=== PATIENT | female | born 1955 | race African-American/Black ===

== ENCOUNTER 2017-12-25 18:28 | Inpatient (IN) | payer MEDICARE, MEDICAID ==
[~2017-12-25] VITALS: Ht 160 cm; Wt 79.0 kg
[~2017-12-25 18:28] MED LIST: QUET300T2 PO; TRIH5TAB2 PO
[2017-12-25 19:20] LABS: BASOPHILS % (AUTO) 0.6 % (0.0-2.0); EOSINOPHILS % (AUTO) 1.1 % (1.0-6.0); HEMATOCRIT 37.5 % (36-46); HEMOGLOBIN 12.7 g/dL (12.0-16.0); LYMPHOCYTES # (AUTO) 1.6 K/uL (1.0-4.8); LYMPHOCYTES % (AUTO) 26.3 % (22.0-44.0); MEAN CORPUSCULAR HGB CONC 33.9 G/dL (31.0-37.0); MEAN CORPUSCULAR VOLUME 92 fL (80-100); MONOCYTES # (AUTO) 0.6 K/uL (0.1-1.0); MONOCYTES % (AUTO) 9.7 % (2.0-9.0); NEUTROPHILS # (AUTO) 3.9 K/uL (1.8-7.7); NEUTROPHILS % (AUTO) 62.3 % (40.0-70.0); PLATELET COUNT (AUTO) 358 K/uL (150-450); RED BLOOD CELL COUNT(AUTO) 4.09 MIL/uL (4.00-5.20); RED CELL DISTRIBUTION WIDTH 14.9 % (11.5-14.5)
[2017-12-25 19:32] LABS: ANION GAP 11 mmol/L (8-16); CALCIUM, TOTAL 10.1 mg/dL (8.8-10.5); CARBON DIOXIDE 26 mmol/L (22-29); CHLORIDE 105 mmol/L (98-107); CREATININE 0.97 mg/dL (0.60-1.30); GLOMERULAR FILTR. RATE CALC > 60 mL/min (>60); GLUCOSE,RANDOM 102 mg/dL (70-110); POTASSIUM 3.1 mmol/L (3.5-5.1); SODIUM SERUM 142 mmol/L (136-145); UREA NITROGEN, BLOOD 15 mg/dL (7-18)
[2017-12-25 19:36] LABS: AMPHET/METH SCREEN,URINE NEGATIVE (NEGATIVE); BARBITURATE SCREEN, URINE NEGATIVE (NEGATIVE); BENZODIAZEPINES SCREEN,URINE NEGATIVE (NEGATIVE); CANNABINOID SCREEN,URINE NEGATIVE (NEGATIVE); COCAINE SCREEN,URINE NEGATIVE (NEGATIVE); METHADONE SCREEN, URINE NEGATIVE (NEGATIVE); OPIATE SCREEN,URINE NEGATIVE (NEGATIVE)
[2017-12-25 19:37] LABS: ALANINE AMINOTRANSFERASE 29 U/L (12-78); ALBUMIN 3.7 g/dL (3.4-5.0); ALKALINE PHOSPHATASE 88 U/L (46-116); ASPARTATE AMINOTRANSFERASE 37 U/L (15-37); BILIRUBIN,TOTAL 0.5 mg/dL (0.1-1.0); TOTAL PROTEIN, SERUM 8.1 g/dL (6.4-8.2)
[2017-12-25 19:55] LABS: PHENCYCLIDINE SCREEN,URINE NEGATIVE (NEGATIVE)
[2017-12-25] MEDS ORDERED: ZOLPIDEM TARTRATE 10 MG TABLET PO PRN (20:15)
[2017-12-25 20:53] LABS: HEMOGLOBIN A1C 5.9 % (4.5-6.2)
[2017-12-25 21:02] LABS: CHOL/HDL RATIO 1.9 (3.9-5.7); CHOLESTEROL 170 mg/dL (131-200); FREE T4 (FREE THYROXINE) 1.08 ng/dL (0.76-1.46); HDL CHOLESTEROL 91 mg/dL (40-60); LDL CHOL (CALC.) 69 mg/dL (0-130); THYROID STIMULATING HORMONE 1.47 uIU/mL (0.36-3.74); TRIGLYCERIDES 49 mg/dL (15-150)
[2017-12-25] MEDS ORDERED: ACETAMINOPHEN 325 MG TABLET PO PRN (22:15)
[2017-12-25] MEDS ORDERED: CloNIDine HCL 0.1 MG TABLET PO PRN (22:15)
[2017-12-25] MEDS ORDERED: POTASSIUM CHLORIDE 20 MEQ ER TABLET PO ONE (22:15)
[2017-12-25] MEDS ORDERED: IBUPROFEN 400 MG TABLET PO PRN (22:15)
[2017-12-25] MEDS: QUEtiapine FUMARATE 100 MG TABLET PO PRN (22:33)
[2017-12-25 22:56] VITALS: BP 151/98
[2017-12-26 02:42] VITALS: BP 133/78
[2017-12-26] MEDS: LORazepam 2 MG TABLET PO PRN (08:22)
[2017-12-26] MEDS: QUEtiapine FUMARATE 100 MG TABLET PO PRN (08:22)
[2017-12-26 10:04] VITALS: BP 136/91
[2017-12-26] MEDS ORDERED: PROMETHAZINE HCL 25 MG TABLET PO PRN (12:15)
[2017-12-26] MEDS ORDERED: MAGNESIUM HYDROXIDE SUSPENSION 30 ML UDCUP PO PRN (12:15)
[2017-12-26] MEDS ORDERED: MAG HYDROX/AL HYDROX/SIMETH ES 30 ML SUSPENSION UDCUP PO PRN (12:15)
[2017-12-26] MEDS ORDERED: ACETAMINOPHEN 325 MG TABLET PO PRN (12:15)
[2017-12-26] MEDS ORDERED: LOPERAMIDE HCL 2 MG CAPSULE PO PRN (12:15)
[2017-12-26] MEDS ORDERED: HydrOXYzine PAMOATE 50 MG CAPSULE PO PRN (12:15)
[2017-12-26] MEDS ORDERED: GuaiFENesin/D-METHORPHAN [SUGAR-FREE] 200-20MG/10 ML SYRUP UDCUP PO PRN (12:15)
[2017-12-26] MEDS ORDERED: TUBERCULIN, PURIFIED PROTEIN DERIVATIVE 5 TU/0.1 ML SYG ID ONE (12:15)
[2017-12-26 17:25] VITALS: BP 123/64
[2017-12-26] MEDS: THIAMINE HCL 100 MG TABLET PO SCH (17:29)
[2017-12-26] MEDS: DIVALPROEX SODIUM 500 MG ER TABLET PO SCH (20:42)
[2017-12-26] MEDS: QUEtiapine FUMARATE 200 MG TABLET PO SCH (20:43)
[2017-12-27 01:15] VITALS: BP 135/90
[2017-12-27] MEDS: LORazepam 2 MG TABLET PO PRN (01:20)
[2017-12-27 06:41] LABS: ANION GAP 7 mmol/L (8-16); CALCIUM, TOTAL 9.1 mg/dL (8.8-10.5); CARBON DIOXIDE 28 mmol/L (22-29); CHLORIDE 105 mmol/L (98-107); CREATINE KINASE, TOTAL ONLY 179 U/L (26-192); CREATININE 0.86 mg/dL (0.60-1.30); GLOMERULAR FILTR. RATE CALC > 60 mL/min (>60); GLUCOSE,RANDOM 91 mg/dL (70-110); POTASSIUM 4.1 mmol/L (3.5-5.1); SODIUM SERUM 140 mmol/L (136-145); UREA NITROGEN, BLOOD 21 mg/dL (7-18); URIC ACID 3.8 mg/dL (2.6-7.2)
[2017-12-27] MEDS: NALTREXONE HCL 50 MG TABLET PO SCH (08:36)
[2017-12-27] MEDS: THIAMINE HCL 100 MG TABLET PO SCH ×2 (08:36→16:25)
[2017-12-27] MEDS: MULTIVITAMINS WITH MINERALS, THERAPEUTIC TABLET PO SCH (08:36)
[2017-12-27] MEDS: FOLIC ACID 1 MG TABLET PO SCH (08:36)
[2017-12-27 13:23] VITALS: BP 144/89
[2017-12-27] MEDS: QUEtiapine FUMARATE 200 MG TABLET PO SCH (20:08)
[2017-12-27] MEDS: DIVALPROEX SODIUM 500 MG ER TABLET PO SCH (20:14)
[2017-12-27 20:40] VITALS: BP 134/94
[2017-12-27 21:42] VITALS: BP 122/62
[2017-12-28 06:10] VITALS: BP 128/83
[2017-12-28] MEDS: THIAMINE HCL 100 MG TABLET PO SCH ×2 (08:24→16:10)
[2017-12-28] MEDS: NALTREXONE HCL 50 MG TABLET PO SCH (08:24)
[2017-12-28] MEDS: FOLIC ACID 1 MG TABLET PO SCH (08:24)
[2017-12-28] MEDS: MULTIVITAMINS WITH MINERALS, THERAPEUTIC TABLET PO SCH (08:24)
[2017-12-28] MEDS: AmLODIPine BESYLATE 2.5 MG TABLET PO SCH (08:24)
[2017-12-28 08:25] VITALS: BP 156/97
[2017-12-28 16:05] VITALS: BP 143/90
[2017-12-28] MEDS ORDERED: QUET200T29 PO (16:17)
[2017-12-28] MEDS ORDERED: NALT50TA PO (16:17)
[2017-12-28] MEDS ORDERED: DIVA500T52 PO (16:17)
[2017-12-28] MEDS: DIVALPROEX SODIUM 500 MG ER TABLET PO SCH (19:56)
[2017-12-28] MEDS: QUEtiapine FUMARATE 200 MG TABLET PO SCH (19:56)
[2017-12-29 04:11] VITALS: BP 136/89
[2017-12-29] MEDS: AmLODIPine BESYLATE 2.5 MG TABLET PO SCH (08:21)
[2017-12-29] MEDS: FOLIC ACID 1 MG TABLET PO SCH (08:21)
[2017-12-29] MEDS: NALTREXONE HCL 50 MG TABLET PO SCH (08:21)
[2017-12-29] MEDS: THIAMINE HCL 100 MG TABLET PO SCH ×2 (08:21→17:47)
[2017-12-29] MEDS: MULTIVITAMINS WITH MINERALS, THERAPEUTIC TABLET PO SCH (08:22)
[2017-12-29 09:39] VITALS: BP 159/96
[2017-12-29 11:22] VITALS: BP 147/96
[2017-12-29] MEDS: LORazepam 2 MG TABLET PO PRN (16:27)
[2017-12-29] MEDS: QUEtiapine FUMARATE 100 MG TABLET PO PRN (16:27)
[2017-12-29] MEDS: DIVALPROEX SODIUM 500 MG ER TABLET PO SCH (20:34)
[2017-12-29] MEDS: QUEtiapine FUMARATE 200 MG TABLET PO SCH (20:35)
[2017-12-29] MEDS ORDERED: QUEtiapine FUMARATE 300 MG TABLET PO SCH (21:00)
[2017-12-29 21:20] VITALS: BP 141/92
[2017-12-30 03:37] VITALS: BP 156/90
[2017-12-30] MEDS: NALTREXONE HCL 50 MG TABLET PO SCH (08:40)
[2017-12-30] MEDS: FOLIC ACID 1 MG TABLET PO SCH (08:40)
[2017-12-30] MEDS: MULTIVITAMINS WITH MINERALS, THERAPEUTIC TABLET PO SCH (08:41)
[2017-12-30] MEDS: AmLODIPine BESYLATE 2.5 MG TABLET PO SCH (08:41)
[2017-12-30] MEDS: THIAMINE HCL 100 MG TABLET PO SCH ×2 (08:41→16:51)
[2017-12-30 09:17] VITALS: BP 150/95
[2017-12-30 16:36] VITALS: BP 135/80
[2017-12-30] MEDS: DIVALPROEX SODIUM 500 MG ER TABLET PO SCH (20:11)
[2017-12-30] MEDS ORDERED: QUEtiapine FUMARATE 200 MG TABLET PO SCH (21:00)
[2017-12-31 01:43] VITALS: BP 146/89
[2017-12-31 08:05] VITALS: BP 142/96
[2017-12-31] MEDS: FOLIC ACID 1 MG TABLET PO SCH (08:22)
[2017-12-31] MEDS: THIAMINE HCL 100 MG TABLET PO SCH (08:22)
[2017-12-31] MEDS: NALTREXONE HCL 50 MG TABLET PO SCH (08:22)
[2017-12-31] MEDS: MULTIVITAMINS WITH MINERALS, THERAPEUTIC TABLET PO SCH (08:24)
[2017-12-31] MEDS ORDERED: AmLODIPine BESYLATE 5 MG TABLET PO SCH (09:00)
[2017-12-31] MEDS: LORazepam 2 MG TABLET PO PRN (09:40)
[2017-12-31] MEDS ORDERED: AMLO-511 PO (12:10)
[2017-12-31] MEDS ORDERED: FOLI1 PO (12:10)
[2017-12-31] MEDS ORDERED: THIA100T67 PO (12:11)
[2017-12-31] MEDS ORDERED: MULT-1239 PO (12:11)
[2018-01-01] MEDS ORDERED: AmLODIPine BESYLATE 10 MG TABLET PO SCH (09:00)
== END 2017-12-31 14:30 | disposition home or self-care (01) | DRG 885 ==
LOC: EMS 18:30 → 3EX 20:42
PROVIDERS: ADMIT Psychiatry & Neurology Psychiatry; ATTEND Psychiatry & Neurology Psychiatry
DX: F25.0 Schizoaffective disorder, bipolar type (principal); E87.1 Hypo-osmolality and hyponatremia; F17.200 Nicotine dependence, unspecified, uncomplicated; F15.10 Other stimulant abuse, uncomplicated; E87.6 Hypokalemia; E78.5 Hyperlipidemia, unspecified; G47.00 Insomnia, unspecified; F19.10 Other psychoactive substance abuse, uncomplicated; M25.569 Pain in unspecified knee; D64.9 Anemia, unspecified; I10 Essential (primary) hypertension; Z91.19 Patient's noncompliance with other medical treatment and regimen; Z98.891 History of uterine scar from previous surgery; Z98.51 Tubal ligation status; Z88.8 Allergy status to other drugs, medicaments and biological substances; Z91.018 Allergy to other foods; Z71.6 Tobacco abuse counseling; Z71.51 Drug abuse counseling and surveillance of drug abuser
CPT/HCPCS: 80074; 83036; 83735; 84439; 84443; 84550; 93005; 99285; G0480

== ENCOUNTER → 2018-02-08 | Outpatient (CLI) | payer MEDICARE, OTHER ==
[~2018-02-08] MED LIST changes: +AMLO-511 PO; +DIVA500T52 PO; +FOLI1 PO; +MULT-1239 PO; +NALT50TA PO; +QUET200T29 PO; -QUET300T2 PO; +THIA100T67 PO; -TRIH5TAB2 PO
== END | disposition home or self-care (01) ==
LOC: LABMN 09:30
PROVIDERS: ATTEND Internal Medicine
DX: F25.0 Schizoaffective disorder, bipolar type (principal); I10 Essential (primary) hypertension; M19.90 Unspecified osteoarthritis, unspecified site
CPT/HCPCS: 80074; 86706; 86708

== ENCOUNTER 2018-06-26 18:25 | Emergency (ER) | payer MEDICARE, MEDICAID ==
[~2018-06-26] VITALS: Ht 160 cm; Wt 70.0 kg
[2018-06-26] MEDS ORDERED: TRIH5TAB2 PO (18:28)
[2018-06-26] MEDS ORDERED: SIMV-259 PO (18:28)
[2018-06-26] MEDS ORDERED: FLUORESCEIN SODIUM 1 MG STRIP OS ONE (21:30)
[2018-06-26] MEDS ORDERED: PROPARACAINE HCL 0.5% 15 ML OPHTHALMIC SOLUTION OS ONE (21:30)
[2018-06-27 00:23] VITALS: BP 129/71
== END 2018-06-27 00:33 | disposition short-term general hospital (02) ==
LOC: EMS 18:28
DX: H54.7 Unspecified visual loss (principal); I10 Essential (primary) hypertension; F31.9 Bipolar disorder, unspecified; F20.9 Schizophrenia, unspecified; F17.210 Nicotine dependence, cigarettes, uncomplicated; F19.90 Other psychoactive substance use, unspecified, uncomplicated; Z88.8 Allergy status to other drugs, medicaments and biological substances; Z91.018 Allergy to other foods
CPT/HCPCS: 99173

== ENCOUNTER 2018-12-12 11:53 | Emergency (ER) | payer BC, OTHER ==
[~2018-12-12] VITALS: Ht 157.5 cm; Wt 79.5 kg
[~2018-12-12 11:53] MED LIST changes: -AMLO-511 PO; +AMLO5TAB9 PO; -DIVA500T52 PO; -FOLI1 PO; -MULT-1239 PO; -NALT50TA PO; +SIMV-259 PO; -THIA100T67 PO; +TRIH5TAB2 PO
[2018-12-12 11:57] VITALS: BP 153/113
[2018-12-12] MEDS ORDERED: QUET300T2 PO (12:05)
[2018-12-12 13:10] LABS: AMPHET/METH SCREEN,URINE NEGATIVE (NEGATIVE); BARBITURATE SCREEN, URINE NEGATIVE (NEGATIVE); BENZODIAZEPINES SCREEN,URINE NEGATIVE (NEGATIVE); CANNABINOID SCREEN,URINE NEGATIVE (NEGATIVE); COCAINE SCREEN,URINE NEGATIVE (NEGATIVE); METHADONE SCREEN, URINE NEGATIVE (NEGATIVE); OPIATE SCREEN,URINE NEGATIVE (NEGATIVE); PHENCYCLIDINE SCREEN,URINE NEGATIVE (NEGATIVE)
[2018-12-12 13:26] LABS: BASOPHILS % (AUTO) 0.8 % (0.0-2.0); EOSINOPHILS % (AUTO) 2.8 % (1.0-6.0); HEMOGLOBIN 11.8 g/dL (12.0-16.0); LYMPHOCYTES # (AUTO) 1.6 K/uL (1.0-4.8); LYMPHOCYTES % (AUTO) 34.5 % (22.0-44.0); MEAN CORPUSCULAR HEMOGLOBIN 32.3 pg (26.0-34.0); MEAN CORPUSCULAR HGB CONC 33.7 G/dL (31.0-37.0); MEAN CORPUSCULAR VOLUME 96 fL (80-100); MONOCYTES # (AUTO) 0.6 K/uL (0.1-1.0); NEUTROPHILS # (AUTO) 2.3 K/uL (1.8-7.7); NEUTROPHILS % (AUTO) 49.9 % (40.0-70.0); PLATELET COUNT (AUTO) 300 K/uL (150-450); RED BLOOD CELL COUNT(AUTO) 3.64 MIL/uL (4.00-5.20); RED CELL DISTRIBUTION WIDTH 14.3 % (11.5-14.5)
[2018-12-12 13:43] LABS: ALANINE AMINOTRANSFERASE 46 U/L (12-78); ALBUMIN 3.6 g/dL (3.4-5.0); ALKALINE PHOSPHATASE 75 U/L (46-116); ANION GAP 11 mmol/L (8-16); ASPARTATE AMINOTRANSFERASE 42 U/L (15-37); BILIRUBIN,TOTAL 0.6 mg/dL (0.1-1.0); CALCIUM, TOTAL 9.8 mg/dL (8.8-10.5); CARBON DIOXIDE 23 mmol/L (22-29); CHLORIDE 104 mmol/L (98-107); CREATININE 0.97 mg/dL (0.60-1.30); GLOMERULAR FILTR. RATE CALC > 60 mL/min (>60); GLUCOSE,RANDOM 94 mg/dL (70-110); SODIUM SERUM 138 mmol/L (136-145); TOTAL PROTEIN, SERUM 7.4 g/dL (6.4-8.2); UREA NITROGEN, BLOOD 17 mg/dL (7-18)
[2018-12-12 13:44] LABS: POTASSIUM 2.9 mmol/L (3.5-5.1)
[2018-12-12] MEDS ORDERED: POTASSIUM CHLORIDE 20 MEQ ER TABLET PO ONE (14:00)
== END 2018-12-12 14:25 | disposition home or self-care (01) ==
LOC: EMS 11:55
DX: F31.9 Bipolar disorder, unspecified (principal); F25.9 Schizoaffective disorder, unspecified; E87.6 Hypokalemia; F17.210 Nicotine dependence, cigarettes, uncomplicated; I10 Essential (primary) hypertension; Z98.51 Tubal ligation status; Z88.8 Allergy status to other drugs, medicaments and biological substances; Z91.018 Allergy to other foods
CPT/HCPCS: 36415; 80053; 80307; 85025; 99284; 99406; G0480

== ENCOUNTER 2018-12-16 14:31 | Inpatient (IN) | payer BC, MEDICAID ==
[~2018-12-16] VITALS: Ht 157.5 cm; Wt 78.0 kg
[~2018-12-16 14:31] MED LIST changes: -AMLO5TAB9 PO; -QUET200T29 PO; +QUET300T2 PO; -SIMV-259 PO
[2018-12-16] MEDS ORDERED: THIA100T67 PO (14:56)
[2018-12-16] MEDS ORDERED: SIMV-259 PO (14:56)
[2018-12-16] MEDS ORDERED: TRIH5TAB2 PO (14:56)
[2018-12-16] MEDS ORDERED: CYCL10 PO (14:56)
[2018-12-16] MEDS ORDERED: IBUP100O27 PO (14:56)
[2018-12-16] MEDS ORDERED: AMLO10TA7 PO (14:56)
[2018-12-16] MEDS ORDERED: QUET300T2 PO (14:56)
[2018-12-16] MEDS ORDERED: CHOL20004 PO (14:56)
[2018-12-16 15:21] VITALS: BP 142/87
[2018-12-16] MEDS ORDERED: QUEtiapine FUMARATE 100 MG TABLET PO PRN (15:45)
[2018-12-16] MEDS ORDERED: LORazepam 2 MG TABLET PO PRN (15:45)
[2018-12-16] MEDS ORDERED: ZOLPIDEM TARTRATE 10 MG TABLET PO PRN (15:45)
[2018-12-16] MEDS ORDERED: IBUP-2070 PO (15:51)
[2018-12-16 16:01] VITALS: BP 139/70
[2018-12-16 17:01] VITALS: BP 139/70
[2018-12-16] MEDS: QUEtiapine FUMARATE 300 MG TABLET PO SCH (20:31)
[2018-12-16] MEDS: TRIHEXYPHENIDYL HCL 5 MG TABLET PO SCH (20:31)
[2018-12-17] VITALS (10 sets, daily range): BP systolic 105–150; BP diastolic 66–98
[2018-12-17 08:22] LABS: BASOPHILS % (AUTO) 0.6 % (0.0-2.0); EOSINOPHILS % (AUTO) 2.1 % (1.0-6.0); HEMOGLOBIN 12.2 g/dL (12.0-16.0); LYMPHOCYTES # (AUTO) 1.6 K/uL (1.0-4.8); LYMPHOCYTES % (AUTO) 25.3 % (22.0-44.0); MEAN CORPUSCULAR HEMOGLOBIN 32.4 pg (26.0-34.0); MEAN CORPUSCULAR HGB CONC 33.9 G/dL (31.0-37.0); MEAN CORPUSCULAR VOLUME 96 fL (80-100); MONOCYTES # (AUTO) 0.7 K/uL (0.1-1.0); MONOCYTES % (AUTO) 10.4 % (2.0-9.0); NEUTROPHILS % (AUTO) 61.6 % (40.0-70.0); PLATELET COUNT (AUTO) 272 K/uL (150-450); RED BLOOD CELL COUNT(AUTO) 3.76 MIL/uL (4.00-5.20); RED CELL DISTRIBUTION WIDTH 14.2 % (11.5-14.5)
[2018-12-17 08:32] LABS: APPEARANCE,URINE CLOUDY (CLEAR); GLUCOSE, URINE (UA) NEGATIVE (NEGATIVE); KETONES,URINE TRACE mg/dL (NEGATIVE); LEUKOCYTE ESTERASE ,URINE TRACE (NEGATIVE); NITRATE,URINE NEGATIVE (NEGATIVE); OCCULT BLOOD,URINE NEGATIVE (NEGATIVE); PH,URINE 5.5 (5.0-8.0); PROTEIN,URINE TRACE (NEGATIVE); UROBILINOGEN,URINE 0.2 mg/dL (<=1.0)
[2018-12-17 08:32] LABS: HEMOGLOBIN A1C 5.7 % (4.5-6.2)
[2018-12-17 08:45] LABS: AMPHET/METH SCREEN,URINE NEGATIVE (NEGATIVE); BARBITURATE SCREEN, URINE NEGATIVE (NEGATIVE); BENZODIAZEPINES SCREEN,URINE NEGATIVE (NEGATIVE); CANNABINOID SCREEN,URINE NEGATIVE (NEGATIVE); COCAINE SCREEN,URINE NEGATIVE (NEGATIVE); METHADONE SCREEN, URINE NEGATIVE (NEGATIVE); OPIATE SCREEN,URINE NEGATIVE (NEGATIVE); PHENCYCLIDINE SCREEN,URINE NEGATIVE (NEGATIVE)
[2018-12-17 08:47] LABS: BILIRUBIN,URINE PRELIM. POSITIVE (NEGATIVE); RBC,URINE 0-2 /HPF (0-2); WBC,URINE 0-2 /HPF (0-5)
[2018-12-17 08:48] LABS: AMORPHOUS SEDIMENT,UR Moderate /LPF (None Seen); BACTERIA,URINE Few /HPF (None Seen); CALCIUM OXALATE CRYSTALS,UR Few /LPF (None Seen); SQUAMOUS EPITHELIAL CELL,UR Many /LPF (None Seen)
[2018-12-17 08:59] LABS: ALANINE AMINOTRANSFERASE 40 U/L (12-78); ALBUMIN 3.3 g/dL (3.4-5.0); ALKALINE PHOSPHATASE 66 U/L (46-116); ANION GAP 9 mmol/L (8-16); ASPARTATE AMINOTRANSFERASE 42 U/L (15-37); BILIRUBIN,TOTAL 0.5 mg/dL (0.1-1.0); CALCIUM, TOTAL 9.6 mg/dL (8.8-10.5); CARBON DIOXIDE 26 mmol/L (22-29); CHLORIDE 101 mmol/L (98-107); CHOLESTEROL 161 mg/dL (131-200); CREATININE 0.94 mg/dL (0.60-1.30); FREE T4 (FREE THYROXINE) 1.12 ng/dL (0.76-1.46); GLOMERULAR FILTR. RATE CALC > 60 mL/min (>60); GLUCOSE,RANDOM 93 mg/dL (70-110); HDL CHOLESTEROL 81 mg/dL (40-60); LDL CHOL (CALC.) 72 mg/dL (0-130); POTASSIUM 3.6 mmol/L (3.5-5.1); SODIUM SERUM 136 mmol/L (136-145); THYROID STIMULATING HORMONE 1.38 uIU/mL (0.36-3.74); TOTAL PROTEIN, SERUM 6.7 g/dL (6.4-8.2); TRIGLYCERIDES 39 mg/dL (15-150); UREA NITROGEN, BLOOD 30 mg/dL (7-18)
[2018-12-17] MEDS ORDERED: ACETAMINOPHEN 325 MG TABLET PO PRN (11:30)
[2018-12-17] MEDS: CYCLOBENZAPRINE HCL 10 MG TABLET PO PRN (12:31)
[2018-12-17] MEDS: TRIHEXYPHENIDYL HCL 5 MG TABLET PO SCH (20:27)
[2018-12-17] MEDS: QUEtiapine FUMARATE 300 MG TABLET PO SCH (20:27)
[2018-12-18 00:11] VITALS: BP 132/78
[2018-12-18] MEDS: IBUPROFEN 600 MG TABLET PO PRN (00:55)
[2018-12-18 08:27] VITALS: BP 130/78
[2018-12-18] MEDS: CYCLOBENZAPRINE HCL 10 MG TABLET PO PRN (09:17)
[2018-12-18] MEDS: CHOLECALCIFEROL (VIT D3) 1,000 UNITS TABLET PO SCH (12:28)
[2018-12-18] MEDS: THIAMINE HCL 100 MG TABLET PO SCH (16:27)
[2018-12-18 17:57] VITALS: BP 132/77
[2018-12-18] MEDS: QUEtiapine FUMARATE 300 MG TABLET PO SCH (20:27)
[2018-12-18] MEDS: TRIHEXYPHENIDYL HCL 5 MG TABLET PO SCH (20:27)
[2018-12-19 03:39] VITALS: BP 114/76
[2018-12-19] MEDS: THIAMINE HCL 100 MG TABLET PO SCH ×2 (09:27→16:28)
[2018-12-19] MEDS: CHOLECALCIFEROL (VIT D3) 1,000 UNITS TABLET PO SCH (09:27)
[2018-12-19] MEDS: AmLODIPine BESYLATE 10 MG TABLET PO SCH (09:27)
[2018-12-19 09:33] VITALS: BP 125/78
[2018-12-19 13:27] VITALS: BP 125/78
[2018-12-19] MEDS: CYCLOBENZAPRINE HCL 10 MG TABLET PO PRN (13:29)
[2018-12-19 16:01] VITALS: BP 136/80
[2018-12-19] MEDS: QUEtiapine FUMARATE 300 MG TABLET PO SCH (20:30)
[2018-12-19] MEDS: TRIHEXYPHENIDYL HCL 5 MG TABLET PO SCH (20:30)
[2018-12-20 03:45] VITALS: BP 123/79
[2018-12-20] MEDS: IBUPROFEN 600 MG TABLET PO PRN (03:48)
[2018-12-20 08:04] VITALS: BP 138/75
[2018-12-20] MEDS: AmLODIPine BESYLATE 10 MG TABLET PO SCH (08:24)
[2018-12-20] MEDS: CHOLECALCIFEROL (VIT D3) 1,000 UNITS TABLET PO SCH (08:24)
[2018-12-20] MEDS: THIAMINE HCL 100 MG TABLET PO SCH ×2 (08:24→16:34)
[2018-12-20] MEDS: NITROFURANTOIN/NITROFURAN MAC 100 MG CAPSULE [MACROBID] PO SCH ×2 (09:30→16:34)
[2018-12-20] MEDS: CYCLOBENZAPRINE HCL 10 MG TABLET PO PRN (10:30)
[2018-12-20 16:04] VITALS: BP 139/76
[2018-12-20] MEDS: QUEtiapine FUMARATE 300 MG TABLET PO SCH (20:29)
[2018-12-20] MEDS: TRIHEXYPHENIDYL HCL 5 MG TABLET PO SCH (21:07)
[2018-12-21 02:31] VITALS: BP 136/84
[2018-12-21] MEDS: IBUPROFEN 600 MG TABLET PO PRN (02:35)
[2018-12-21 08:23] VITALS: BP_SYST 122; BP_SYST 124; BP_DIAS 79; BP_DIAS 90
[2018-12-21] MEDS: AmLODIPine BESYLATE 10 MG TABLET PO SCH (08:32)
[2018-12-21] MEDS: THIAMINE HCL 100 MG TABLET PO SCH ×2 (08:32→16:27)
[2018-12-21] MEDS: CHOLECALCIFEROL (VIT D3) 1,000 UNITS TABLET PO SCH (08:32)
[2018-12-21] MEDS: NITROFURANTOIN/NITROFURAN MAC 100 MG CAPSULE [MACROBID] PO SCH ×2 (08:32→16:27)
[2018-12-21 16:19] VITALS: BP 120/78
[2018-12-21] MEDS: TRIHEXYPHENIDYL HCL 5 MG TABLET PO SCH (21:21)
[2018-12-21] MEDS: QUEtiapine FUMARATE 300 MG TABLET PO SCH (21:21)
[2018-12-22 04:50] VITALS: BP 130/83
[2018-12-22 08:12] VITALS: BP 134/81
[2018-12-22] MEDS: AmLODIPine BESYLATE 10 MG TABLET PO SCH (08:31)
[2018-12-22] MEDS: CHOLECALCIFEROL (VIT D3) 1,000 UNITS TABLET PO SCH (08:31)
[2018-12-22] MEDS: NITROFURANTOIN/NITROFURAN MAC 100 MG CAPSULE [MACROBID] PO SCH ×2 (08:31→16:31)
[2018-12-22] MEDS: THIAMINE HCL 100 MG TABLET PO SCH ×2 (08:31→16:31)
[2018-12-22] MEDS ORDERED: MACR100 PO (10:35)
[2018-12-22 16:01] VITALS: BP 125/72
[2018-12-22] MEDS: QUEtiapine FUMARATE 300 MG TABLET PO SCH (20:28)
[2018-12-22] MEDS: TRIHEXYPHENIDYL HCL 5 MG TABLET PO SCH (20:28)
[2018-12-23 02:41] VITALS: BP 140/80
[2018-12-23] MEDS ORDERED: THIA100T67 PO (08:04)
[2018-12-23 08:10] VITALS: BP 140/93
[2018-12-23] MEDS: AmLODIPine BESYLATE 10 MG TABLET PO SCH (08:21)
[2018-12-23] MEDS: CHOLECALCIFEROL (VIT D3) 1,000 UNITS TABLET PO SCH (08:21)
[2018-12-23] MEDS: NITROFURANTOIN/NITROFURAN MAC 100 MG CAPSULE [MACROBID] PO SCH (08:22)
[2018-12-23] MEDS: THIAMINE HCL 100 MG TABLET PO SCH (08:22)
== END 2018-12-23 10:12 | disposition home or self-care (01) | DRG 885 ==
LOC: EDSTATUS 14:40 → B2X 16:32
DX: F25.0 Schizoaffective disorder, bipolar type (principal); E55.9 Vitamin D deficiency, unspecified; E78.5 Hyperlipidemia, unspecified; I10 Essential (primary) hypertension; R45.850 Homicidal ideations; E87.6 Hypokalemia; M54.9 Dorsalgia, unspecified; Z79.899 Other long term (current) drug therapy; Z88.8 Allergy status to other drugs, medicaments and biological substances; Z91.018 Allergy to other foods; Z98.51 Tubal ligation status
CPT/HCPCS: 80307; 83036; 84439; 84443; 87081

== ENCOUNTER 2018-12-27 10:57 | Inpatient (IN) | payer BC, MEDICAID ==
[~2018-12-27] VITALS: Ht 160 cm; Wt 78.5 kg
[~2018-12-27 10:57] MED LIST changes: +AMLO10TA7 PO; +CHOL20004 PO; +MACR100 PO; +THIA100T67 PO
[2018-12-27 11:14] VITALS: BP 183/102
[2018-12-27] MEDS ORDERED: CloNIDine HCL 0.1 MG TABLET PO PRN (12:00)
[2018-12-27] MEDS: MULTIVITAMINS WITH MINERALS, THERAPEUTIC TABLET PO SCH (13:19)
[2018-12-27] MEDS: AmLODIPine BESYLATE 10 MG TABLET PO SCH (13:19)
[2018-12-27] MEDS: TRIHEXYPHENIDYL HCL 5 MG TABLET PO SCH ×2 (13:19→16:18)
[2018-12-27] MEDS ORDERED: INFLUENZA VIRUS VACCINE QVS 2019-20 (3YR+)/PF 60 MCG/0.5 ML SYRINGE IM ONE (13:45)
[2018-12-27] MEDS ORDERED: PNEUMOCOCCAL VACCINE POLYVALENT 0.5 ML VIAL [PPSV23] IM ONE (13:45)
[2018-12-27] MEDS ORDERED: ACETAMINOPHEN 325 MG TABLET PO PRN (13:45)
[2018-12-27] MEDS: HydrOXYzine HCL 25 MG TABLET PO SCH ×3 (14:40→16:31)
[2018-12-27 15:08] VITALS: BP 143/88
[2018-12-27 16:06] VITALS: BP 140/84
[2018-12-27] MEDS: QUEtiapine FUMARATE 300 MG TABLET PO SCH (20:02)
[2018-12-28 04:57] VITALS: BP 138/86
[2018-12-28 07:16] LABS: BASOPHILS % (AUTO) 0.8 % (0.0-2.0); EOSINOPHILS % (AUTO) 3.5 % (1.0-6.0); HEMATOCRIT 36.5 % (36-46); HEMOGLOBIN 12.7 g/dL (12.0-16.0); LYMPHOCYTES # (AUTO) 1.9 K/uL (1.0-4.8); LYMPHOCYTES % (AUTO) 33.5 % (22.0-44.0); MEAN CORPUSCULAR HEMOGLOBIN 32.9 pg (26.0-34.0); MEAN CORPUSCULAR HGB CONC 34.9 G/dL (31.0-37.0); MEAN CORPUSCULAR VOLUME 94 fL (80-100); MONOCYTES # (AUTO) 0.6 K/uL (0.1-1.0); MONOCYTES % (AUTO) 11.1 % (2.0-9.0); NEUTROPHILS # (AUTO) 2.9 K/uL (1.8-7.7); NEUTROPHILS % (AUTO) 51.1 % (40.0-70.0); PLATELET COUNT (AUTO) 352 K/uL (150-450); RED BLOOD CELL COUNT(AUTO) 3.87 MIL/uL (4.00-5.20); RED CELL DISTRIBUTION WIDTH 13.6 % (11.5-14.5)
[2018-12-28 07:26] LABS: ANION GAP 9 mmol/L (8-16); CALCIUM, TOTAL 9.6 mg/dL (8.8-10.5); CARBON DIOXIDE 28 mmol/L (22-29); CHLORIDE 103 mmol/L (98-107); CREATININE 0.99 mg/dL (0.60-1.30); GLOMERULAR FILTR. RATE CALC > 60 mL/min (>60); GLUCOSE,RANDOM 124 mg/dL (70-110); SODIUM SERUM 140 mmol/L (136-145); UREA NITROGEN, BLOOD 15 mg/dL (7-18)
[2018-12-28 08:08] VITALS: BP 122/80
[2018-12-28] MEDS: MULTIVITAMINS WITH MINERALS, THERAPEUTIC TABLET PO SCH (08:19)
[2018-12-28] MEDS: TRIHEXYPHENIDYL HCL 5 MG TABLET PO SCH ×2 (08:19→21:00)
[2018-12-28] MEDS: AmLODIPine BESYLATE 10 MG TABLET PO SCH (08:19)
[2018-12-28] MEDS: HydrOXYzine HCL 25 MG TABLET PO SCH ×2 (08:19→16:10)
[2018-12-28 16:04] VITALS: BP 138/87
[2018-12-28] MEDS ORDERED: QUEtiapine FUMARATE 300 MG TABLET PO SCH (21:00)
[2018-12-28] MEDS: QUEtiapine FUMARATE 300 MG TABLET PO SCH (21:00)
[2018-12-29 06:01] VITALS: BP 119/68
[2018-12-29 08:07] VITALS: BP 140/80
[2018-12-29] MEDS: HydrOXYzine HCL 25 MG TABLET PO SCH ×2 (08:09→17:17)
[2018-12-29] MEDS: MULTIVITAMINS WITH MINERALS, THERAPEUTIC TABLET PO SCH (08:09)
[2018-12-29] MEDS: AmLODIPine BESYLATE 10 MG TABLET PO SCH (08:09)
[2018-12-29 16:06] VITALS: BP 135/81
[2018-12-29] MEDS: TRIHEXYPHENIDYL HCL 5 MG TABLET PO SCH (21:09)
[2018-12-29] MEDS: QUEtiapine FUMARATE 300 MG TABLET PO SCH (21:09)
[2018-12-29] MEDS ORDERED: QUEtiapine FUMARATE 100 MG TABLET PO PRN (22:30)
[2018-12-29] MEDS ORDERED: LORazepam 2 MG TABLET PO PRN (22:30)
[2018-12-29] MEDS ORDERED: ZOLPIDEM TARTRATE 10 MG TABLET PO PRN (22:30)
[2018-12-30 00:49] VITALS: BP 140/92
[2018-12-30 02:45] VITALS: BP 138/86
[2018-12-30] MEDS: LORazepam 2 MG TABLET PO PRN (03:14)
[2018-12-30] MEDS: IBUPROFEN 600 MG TABLET PO PRN ×2 (03:14→22:56)
[2018-12-30 08:19] VITALS: BP 102/61
[2018-12-30] MEDS: HydrOXYzine HCL 25 MG TABLET PO SCH ×2 (08:53→16:06)
[2018-12-30] MEDS: AmLODIPine BESYLATE 10 MG TABLET PO SCH (08:53)
[2018-12-30] MEDS: MULTIVITAMINS WITH MINERALS, THERAPEUTIC TABLET PO SCH (08:53)
[2018-12-30 16:10] VITALS: BP 137/75
[2018-12-30] MEDS: TRIHEXYPHENIDYL HCL 5 MG TABLET PO SCH (20:11)
[2018-12-30] MEDS: QUEtiapine FUMARATE 300 MG TABLET PO SCH (20:11)
[2018-12-30 22:56] VITALS: BP 129/78
[2018-12-31 03:32] VITALS: BP 121/80
[2018-12-31 08:32] VITALS: BP 116/78
[2018-12-31] MEDS: HydrOXYzine HCL 25 MG TABLET PO SCH ×2 (08:32→16:15)
[2018-12-31] MEDS: LORazepam 2 MG TABLET PO PRN (08:32)
[2018-12-31] MEDS: MULTIVITAMINS WITH MINERALS, THERAPEUTIC TABLET PO SCH (08:32)
[2018-12-31] MEDS: AmLODIPine BESYLATE 10 MG TABLET PO SCH (08:32)
[2018-12-31 16:09] VITALS: BP 127/75
[2018-12-31] MEDS: QUEtiapine FUMARATE 300 MG TABLET PO SCH (20:09)
[2018-12-31] MEDS: TRIHEXYPHENIDYL HCL 5 MG TABLET PO SCH (20:09)
[2019-01-01 00:18] VITALS: BP 121/68
[2019-01-01] MEDS: IBUPROFEN 600 MG TABLET PO PRN (00:18)
[2019-01-01] MEDS: AmLODIPine BESYLATE 10 MG TABLET PO SCH (08:15)
[2019-01-01] MEDS: HydrOXYzine HCL 25 MG TABLET PO SCH ×2 (08:15→16:11)
[2019-01-01] MEDS: MULTIVITAMINS WITH MINERALS, THERAPEUTIC TABLET PO SCH (08:15)
[2019-01-01 08:21] VITALS: BP 140/79
[2019-01-01 16:11] VITALS: BP 142/80
[2019-01-01] MEDS: LORazepam 2 MG TABLET PO PRN (18:50)
[2019-01-01] MEDS: TRIHEXYPHENIDYL HCL 5 MG TABLET PO SCH (20:13)
[2019-01-01] MEDS: QUEtiapine FUMARATE 300 MG TABLET PO SCH (20:13)
[2019-01-02 00:13] VITALS: BP 132/79
[2019-01-02 08:13] LABS: BASOPHILS % (AUTO) 0.6 % (0.0-2.0); EOSINOPHILS % (AUTO) 1.2 % (1.0-6.0); HEMATOCRIT 34.7 % (36-46); HEMOGLOBIN 11.7 g/dL (12.0-16.0); LYMPHOCYTES # (AUTO) 1.4 K/uL (1.0-4.8); LYMPHOCYTES % (AUTO) 20.7 % (22.0-44.0); MEAN CORPUSCULAR HEMOGLOBIN 32.4 pg (26.0-34.0); MEAN CORPUSCULAR HGB CONC 33.8 G/dL (31.0-37.0); MEAN CORPUSCULAR VOLUME 96 fL (80-100); MONOCYTES # (AUTO) 0.6 K/uL (0.1-1.0); MONOCYTES % (AUTO) 8.6 % (2.0-9.0); NEUTROPHILS # (AUTO) 4.8 K/uL (1.8-7.7); NEUTROPHILS % (AUTO) 68.9 % (40.0-70.0); PLATELET COUNT (AUTO) 326 K/uL (150-450); RED BLOOD CELL COUNT(AUTO) 3.62 MIL/uL (4.00-5.20); RED CELL DISTRIBUTION WIDTH 13.6 % (11.5-14.5)
[2019-01-02 08:25] VITALS: BP 124/75
[2019-01-02] MEDS: MULTIVITAMINS WITH MINERALS, THERAPEUTIC TABLET PO SCH (08:39)
[2019-01-02] MEDS: HydrOXYzine HCL 25 MG TABLET PO SCH (08:39)
[2019-01-02] MEDS: AmLODIPine BESYLATE 10 MG TABLET PO SCH (08:39)
[2019-01-02 09:18] LABS: ALANINE AMINOTRANSFERASE 35 U/L (12-78); ALBUMIN 3.7 g/dL (3.4-5.0); ALKALINE PHOSPHATASE 66 U/L (46-116); ANION GAP 9 mmol/L (8-16); ASPARTATE AMINOTRANSFERASE 25 U/L (15-37); BILIRUBIN,TOTAL 0.4 mg/dL (0.1-1.0); CALCIUM, TOTAL 10.1 mg/dL (8.8-10.5); CARBON DIOXIDE 29 mmol/L (22-29); CHLORIDE 99 mmol/L (98-107); CREATINE KINASE, TOTAL ONLY 231 U/L (26-192); CREATININE 0.94 mg/dL (0.60-1.30); GLOMERULAR FILTR. RATE CALC > 60 mL/min (>60); GLUCOSE,RANDOM 130 mg/dL (70-110); POTASSIUM 3.8 mmol/L (3.5-5.1); SODIUM SERUM 137 mmol/L (136-145); TOTAL PROTEIN, SERUM 7.3 g/dL (6.4-8.2); UREA NITROGEN, BLOOD 26 mg/dL (7-18)
[2019-01-02] MEDS ORDERED: TRIH5TAB2 PO ×2 (11:17→11:58)
[2019-01-02] MEDS ORDERED: QUET300T18 PO (11:17)
[2019-01-02] MEDS ORDERED: MULT-1239 PO (11:48)
[2019-01-02] MEDS ORDERED: HYD25 PO (11:48)
== END 2019-01-02 13:20 | disposition home or self-care (01) | DRG 885 ==
LOC: B2X 12:09
PROC: 3E0234Z Introduction of Serum, Toxoid and Vaccine into Muscle, Percutaneous Approach (ICD-10-PCS; principal; 2018-12-27)
DX: F25.9 Schizoaffective disorder, unspecified (principal); E78.5 Hyperlipidemia, unspecified; I10 Essential (primary) hypertension; K21.9 Gastro-esophageal reflux disease without esophagitis; Z91.19 Patient's noncompliance with other medical treatment and regimen; Z88.8 Allergy status to other drugs, medicaments and biological substances; Z91.018 Allergy to other foods; Z53.20 Procedure and treatment not carried out because of patient's decision for unspecified reasons; Z23 Encounter for immunization
CPT/HCPCS: 83735; 87081; 90686

== ENCOUNTER 2019-01-06 19:57 | Inpatient (IN) | payer BC, MEDICAID ==
[~2019-01-06] VITALS: Ht 157.5 cm; Wt 80.5 kg
[~2019-01-06 19:57] MED LIST changes: -CHOL20004 PO; +HYD25 PO; -MACR100 PO; +MULT-1239 PO; +QUET300T18 PO; -THIA100T67 PO
[2019-01-06 21:01] LABS: BASOPHILS % (AUTO) 1.2 % (0.0-2.0); EOSINOPHILS % (AUTO) 2.1 % (1.0-6.0); HEMATOCRIT 37.4 % (36-46); HEMOGLOBIN 12.3 g/dL (12.0-16.0); LYMPHOCYTES # (AUTO) 2.2 K/uL (1.0-4.8); LYMPHOCYTES % (AUTO) 28.3 % (22.0-44.0); MEAN CORPUSCULAR HEMOGLOBIN 31.9 pg (26.0-34.0); MEAN CORPUSCULAR VOLUME 97 fL (80-100); MONOCYTES # (AUTO) 0.9 K/uL (0.1-1.0); MONOCYTES % (AUTO) 12.2 % (2.0-9.0); NEUTROPHILS # (AUTO) 4.4 K/uL (1.8-7.7); NEUTROPHILS % (AUTO) 56.2 % (40.0-70.0); PLATELET COUNT (AUTO) 349 K/uL (150-450); RED BLOOD CELL COUNT(AUTO) 3.87 MIL/uL (4.00-5.20)
[2019-01-06 21:49] LABS: ALANINE AMINOTRANSFERASE 40 U/L (12-78); ALBUMIN 3.8 g/dL (3.4-5.0); ALKALINE PHOSPHATASE 73 U/L (46-116); ANION GAP 13 mmol/L (8-16); ASPARTATE AMINOTRANSFERASE 38 U/L (15-37); BILIRUBIN,TOTAL 0.9 mg/dL (0.1-1.0); CALCIUM, TOTAL 9.7 mg/dL (8.8-10.5); CARBON DIOXIDE 23 mmol/L (22-29); CHLORIDE 105 mmol/L (98-107); CREATINE KINASE, TOTAL ONLY 438 U/L (26-192); CREATININE 0.96 mg/dL (0.60-1.30); GLOMERULAR FILTR. RATE CALC > 60 mL/min (>60); GLUCOSE,RANDOM 99 mg/dL (70-110); SODIUM SERUM 141 mmol/L (136-145); UREA NITROGEN, BLOOD 23 mg/dL (7-18)
[2019-01-06 21:53] LABS: AMPHET/METH SCREEN,URINE NEGATIVE (NEGATIVE); BARBITURATE SCREEN, URINE NEGATIVE (NEGATIVE); BENZODIAZEPINES SCREEN,URINE NEGATIVE (NEGATIVE); CANNABINOID SCREEN,URINE NEGATIVE (NEGATIVE); COCAINE SCREEN,URINE NEGATIVE (NEGATIVE); METHADONE SCREEN, URINE NEGATIVE (NEGATIVE); OPIATE SCREEN,URINE NEGATIVE (NEGATIVE)
[2019-01-06 21:54] LABS: PHENCYCLIDINE SCREEN,URINE NEGATIVE (NEGATIVE)
[2019-01-06] MEDS ORDERED: POTASSIUM CHLORIDE 20 MEQ ER TABLET PO ONE (22:15)
[2019-01-07] MEDS ORDERED: ZOLPIDEM TARTRATE 10 MG TABLET PO PRN (02:30)
[2019-01-07] MEDS: QUEtiapine FUMARATE 100 MG TABLET PO PRN ×3 (03:58→19:24)
[2019-01-07 04:24] VITALS: BP 145/90
[2019-01-07] MEDS ORDERED: MAG HYDROX/AL HYDROX/SIMETH ES 30 ML SUSPENSION UDCUP PO PRN (09:30)
[2019-01-07] MEDS ORDERED: ACETAMINOPHEN 325 MG TABLET PO PRN (09:30)
[2019-01-07] MEDS ORDERED: DOCUSATE SODIUM 100 MG CAPSULE PO PRN (09:30)
[2019-01-07] MEDS ORDERED: GuaiFENesin/D-METHORPHAN [SUGAR-FREE] 200-20MG/10 ML SYRUP UDCUP PO PRN (09:30)
[2019-01-07] MEDS ORDERED: NICOTINE 14 MG/24 HOUR PATCH TD PRN (09:30)
[2019-01-07] MEDS ORDERED: MAGNESIUM HYDROXIDE SUSPENSION 30 ML UDCUP PO PRN (09:30)
[2019-01-07] MEDS ORDERED: ALBUTEROL SULFATE HFA 90 MCG/PUFF 8 GM INHALER IH PRN (09:30)
[2019-01-07] MEDS ORDERED: LOPERAMIDE HCL 2 MG CAPSULE PO PRN (09:30)
[2019-01-07] MEDS ORDERED: CloNIDine HCL 0.1 MG TABLET PO PRN (09:30)
[2019-01-07] MEDS ORDERED: ONDANSETRON HCL 4 MG TABLET PO PRN (09:30)
[2019-01-07 09:58] VITALS: BP 132/73
[2019-01-07] MEDS: IBUPROFEN 400 MG TABLET PO PRN (09:58)
[2019-01-07] MEDS: LORazepam 2 MG TABLET PO PRN ×2 (11:23→19:24)
[2019-01-08 03:15] VITALS: BP 116/86
[2019-01-08] MEDS: IBUPROFEN 400 MG TABLET PO PRN (03:20)
[2019-01-08 06:39] LABS: CHOL/HDL RATIO 1.8 (3.9-5.7); POTASSIUM 3.4 mmol/L (3.5-5.1)
[2019-01-08 08:25] VITALS: BP 150/117
[2019-01-08] MEDS: MULTIVITAMINS WITH MINERALS, THERAPEUTIC TABLET PO SCH (08:28)
[2019-01-08] MEDS: LORazepam 2 MG TABLET PO PRN (08:28)
[2019-01-08] MEDS: AmLODIPine BESYLATE 10 MG TABLET PO SCH (08:28)
[2019-01-08] MEDS: QUEtiapine FUMARATE 100 MG TABLET PO PRN (08:29)
[2019-01-08 09:42] VITALS: BP 124/73
[2019-01-08 16:00] VITALS: BP 125/78
[2019-01-08] MEDS: QUEtiapine FUMARATE 200 MG TABLET PO SCH (20:05)
[2019-01-08] MEDS: TRIHEXYPHENIDYL HCL 5 MG TABLET PO SCH (20:05)
[2019-01-08] MEDS: DIVALPROEX SODIUM 500 MG DR TABLET PO SCH (20:05)
[2019-01-09 02:40] VITALS: BP 133/93
[2019-01-09] MEDS: LORazepam 2 MG TABLET PO PRN ×2 (02:58→08:38)
[2019-01-09] MEDS: QUEtiapine FUMARATE 100 MG TABLET PO PRN ×2 (02:59→08:37)
[2019-01-09] MEDS: IBUPROFEN 400 MG TABLET PO PRN (03:22)
[2019-01-09] MEDS: AmLODIPine BESYLATE 10 MG TABLET PO SCH (08:37)
[2019-01-09] MEDS: TRIHEXYPHENIDYL HCL 5 MG TABLET PO SCH ×2 (08:38→20:10)
[2019-01-09] MEDS: DIVALPROEX SODIUM 500 MG DR TABLET PO SCH ×2 (08:38→20:12)
[2019-01-09] MEDS: MULTIVITAMINS WITH MINERALS, THERAPEUTIC TABLET PO SCH (08:38)
[2019-01-09] MEDS: QUEtiapine FUMARATE 200 MG TABLET PO SCH ×2 (08:41→20:12)
[2019-01-09 11:05] VITALS: BP 130/85
[2019-01-09] MEDS ORDERED: POTASSIUM CHLORIDE 20 MEQ ER TABLET PO ONE (11:45)
[2019-01-09 16:49] VITALS: BP 135/81
[2019-01-10] MEDS: IBUPROFEN 400 MG TABLET PO PRN (03:58)
[2019-01-10 04:58] VITALS: BP 155/95
[2019-01-10] MEDS: LORazepam 2 MG TABLET PO PRN ×2 (05:39→10:01)
[2019-01-10 06:39] LABS: ANION GAP 10 mmol/L (8-16); CARBON DIOXIDE 26 mmol/L (22-29); CHLORIDE 105 mmol/L (98-107); CREATININE 0.82 mg/dL (0.60-1.30); GLUCOSE,RANDOM 74 mg/dL (70-110); POTASSIUM 4.4 mmol/L (3.5-5.1); SODIUM SERUM 141 mmol/L (136-145); UREA NITROGEN, BLOOD 20 mg/dL (7-18)
[2019-01-10 06:40] LABS: CALCIUM, TOTAL 9.4 mg/dL (8.8-10.5); GLOMERULAR FILTR. RATE CALC > 60 mL/min (>60)
[2019-01-10] MEDS: TRIHEXYPHENIDYL HCL 5 MG TABLET PO SCH ×2 (09:26→21:05)
[2019-01-10] MEDS: AmLODIPine BESYLATE 10 MG TABLET PO SCH (09:27)
[2019-01-10] MEDS: DIVALPROEX SODIUM 500 MG DR TABLET PO SCH ×2 (09:27→21:05)
[2019-01-10] MEDS: MULTIVITAMINS WITH MINERALS, THERAPEUTIC TABLET PO SCH (09:28)
[2019-01-10] MEDS: QUEtiapine FUMARATE 200 MG TABLET PO SCH ×2 (09:28→21:05)
[2019-01-10 09:49] VITALS: BP 140/89
[2019-01-10 16:30] VITALS: BP 116/73
[2019-01-11] MEDS: IBUPROFEN 400 MG TABLET PO PRN (01:44)
[2019-01-11 08:00] VITALS: BP 144/86
[2019-01-11] MEDS: DIVALPROEX SODIUM 500 MG DR TABLET PO SCH ×2 (08:48→20:17)
[2019-01-11] MEDS: MULTIVITAMINS WITH MINERALS, THERAPEUTIC TABLET PO SCH (08:48)
[2019-01-11] MEDS: AmLODIPine BESYLATE 10 MG TABLET PO SCH (08:48)
[2019-01-11] MEDS: QUEtiapine FUMARATE 200 MG TABLET PO SCH ×2 (08:48→20:02)
[2019-01-11] MEDS: LORazepam 1 MG TABLET PO PRN (08:50)
[2019-01-11] MEDS: TRIHEXYPHENIDYL HCL 5 MG TABLET PO SCH ×2 (08:51→20:01)
[2019-01-11 17:19] VITALS: BP 154/78
[2019-01-12 02:55] VITALS: BP 140/86
[2019-01-12] MEDS: IBUPROFEN 400 MG TABLET PO PRN (02:55)
[2019-01-12 08:00] VITALS: BP 146/81
[2019-01-12] MEDS: AmLODIPine BESYLATE 10 MG TABLET PO SCH (08:35)
[2019-01-12] MEDS: TRIHEXYPHENIDYL HCL 5 MG TABLET PO SCH ×2 (08:35→20:03)
[2019-01-12] MEDS: MULTIVITAMINS WITH MINERALS, THERAPEUTIC TABLET PO SCH (08:36)
[2019-01-12] MEDS: QUEtiapine FUMARATE 200 MG TABLET PO SCH ×2 (08:36→20:03)
[2019-01-12] MEDS: LORazepam 1 MG TABLET PO PRN ×2 (08:38→20:04)
[2019-01-12] MEDS: DIVALPROEX SODIUM 500 MG DR TABLET PO SCH ×2 (08:40→20:05)
[2019-01-12 17:17] VITALS: BP 139/75
[2019-01-13 00:50] VITALS: BP 143/91
[2019-01-13] MEDS: IBUPROFEN 400 MG TABLET PO PRN (00:52)
[2019-01-13 08:30] VITALS: BP 143/91
[2019-01-13] MEDS: DIVALPROEX SODIUM 500 MG DR TABLET PO SCH ×3 (09:00→20:09)
[2019-01-13] MEDS: AmLODIPine BESYLATE 10 MG TABLET PO SCH (09:08)
[2019-01-13] MEDS: MULTIVITAMINS WITH MINERALS, THERAPEUTIC TABLET PO SCH (09:08)
[2019-01-13] MEDS: QUEtiapine FUMARATE 200 MG TABLET PO SCH ×2 (09:08→20:07)
[2019-01-13] MEDS: TRIHEXYPHENIDYL HCL 5 MG TABLET PO SCH ×2 (09:09→20:07)
[2019-01-13 16:51] VITALS: BP 139/86
[2019-01-14 00:16] VITALS: BP 112/71
[2019-01-14] MEDS: DIVALPROEX SODIUM 500 MG DR TABLET PO SCH ×2 (09:00→20:32)
[2019-01-14] MEDS: TRIHEXYPHENIDYL HCL 5 MG TABLET PO SCH ×2 (09:22→20:31)
[2019-01-14] MEDS: MULTIVITAMINS WITH MINERALS, THERAPEUTIC TABLET PO SCH (09:24)
[2019-01-14] MEDS: QUEtiapine FUMARATE 200 MG TABLET PO SCH ×2 (09:24→20:32)
[2019-01-14] MEDS: AmLODIPine BESYLATE 10 MG TABLET PO SCH (09:24)
[2019-01-14] MEDS: LORazepam 1 MG TABLET PO PRN (09:24)
[2019-01-14 09:55] VITALS: BP 122/65
[2019-01-14 18:13] VITALS: BP 131/85
[2019-01-14] MEDS: QUEtiapine FUMARATE 100 MG TABLET PO PRN (19:17)
[2019-01-14] MEDS: IBUPROFEN 400 MG TABLET PO PRN (19:18)
[2019-01-15] MEDS: IBUPROFEN 400 MG TABLET PO PRN (00:54)
[2019-01-15 01:48] VITALS: BP 140/81
[2019-01-15 08:00] VITALS: BP 146/90
[2019-01-15] MEDS: TRIHEXYPHENIDYL HCL 5 MG TABLET PO SCH ×2 (08:47→20:09)
[2019-01-15] MEDS: DIVALPROEX SODIUM 500 MG DR TABLET PO SCH (08:49)
[2019-01-15] MEDS: MULTIVITAMINS WITH MINERALS, THERAPEUTIC TABLET PO SCH (08:49)
[2019-01-15] MEDS: AmLODIPine BESYLATE 10 MG TABLET PO SCH (08:49)
[2019-01-15] MEDS: QUEtiapine FUMARATE 200 MG TABLET PO SCH ×2 (08:49→20:09)
[2019-01-15] MEDS: LORazepam 1 MG TABLET PO PRN (08:49)
[2019-01-15 16:00] VITALS: BP 138/87
[2019-01-15] MEDS: QUEtiapine FUMARATE 100 MG TABLET PO PRN (16:33)
[2019-01-16 02:41] VITALS: BP 112/76
[2019-01-16] MEDS: AmLODIPine BESYLATE 10 MG TABLET PO SCH (08:56)
[2019-01-16] MEDS: MULTIVITAMINS WITH MINERALS, THERAPEUTIC TABLET PO SCH (08:56)
[2019-01-16] MEDS: TRIHEXYPHENIDYL HCL 5 MG TABLET PO SCH ×2 (08:57→20:38)
[2019-01-16 09:33] VITALS: BP 155/97
[2019-01-16 18:08] VITALS: BP 128/73
[2019-01-16] MEDS: QUEtiapine FUMARATE 200 MG TABLET PO SCH (20:39)
[2019-01-17 02:05] VITALS: BP 117/74
[2019-01-17] MEDS: IBUPROFEN 400 MG TABLET PO PRN (02:09)
[2019-01-17] MEDS: TRIHEXYPHENIDYL HCL 5 MG TABLET PO SCH ×2 (08:21→21:02)
[2019-01-17] MEDS: AmLODIPine BESYLATE 10 MG TABLET PO SCH (08:21)
[2019-01-17] MEDS: MULTIVITAMINS WITH MINERALS, THERAPEUTIC TABLET PO SCH (08:21)
[2019-01-17] MEDS: LORazepam 1 MG TABLET PO PRN ×2 (08:23→16:17)
[2019-01-17] MEDS: QUEtiapine FUMARATE 100 MG TABLET PO PRN ×2 (08:23→16:17)
[2019-01-17 08:42] VITALS: BP 141/82
[2019-01-17] MEDS: PETROLATUM,WHITE 28 GM JELLY TP PRN (14:33)
[2019-01-17 17:02] VITALS: BP 122/73
[2019-01-17] MEDS: QUEtiapine FUMARATE 200 MG TABLET PO SCH (21:07)
[2019-01-18 02:00] VITALS: BP 124/76
[2019-01-18] MEDS: LORazepam 1 MG TABLET PO PRN ×2 (09:23→17:25)
[2019-01-18] MEDS: MULTIVITAMINS WITH MINERALS, THERAPEUTIC TABLET PO SCH (09:23)
[2019-01-18] MEDS: AmLODIPine BESYLATE 10 MG TABLET PO SCH (09:23)
[2019-01-18] MEDS: TRIHEXYPHENIDYL HCL 5 MG TABLET PO SCH ×2 (09:23→20:14)
[2019-01-18] MEDS: QUEtiapine FUMARATE 100 MG TABLET PO PRN ×2 (09:23→17:25)
[2019-01-18 13:19] VITALS: BP 142/94
[2019-01-18 16:00] VITALS: BP 122/73
[2019-01-18] MEDS: QUEtiapine FUMARATE 200 MG TABLET PO SCH (20:14)
[2019-01-19 05:34] VITALS: BP 129/78
[2019-01-19 08:45] VITALS: BP 135/73
[2019-01-19] MEDS: QUEtiapine FUMARATE 100 MG TABLET PO PRN (10:10)
[2019-01-19] MEDS: LORazepam 1 MG TABLET PO PRN (10:10)
[2019-01-19] MEDS: MULTIVITAMINS WITH MINERALS, THERAPEUTIC TABLET PO SCH (10:10)
[2019-01-19] MEDS: AmLODIPine BESYLATE 10 MG TABLET PO SCH (10:10)
[2019-01-19] MEDS: TRIHEXYPHENIDYL HCL 5 MG TABLET PO SCH ×2 (11:15→20:26)
[2019-01-19 17:02] VITALS: BP 134/80
[2019-01-19] MEDS: QUEtiapine FUMARATE 200 MG TABLET PO SCH (20:26)
[2019-01-20 03:17] VITALS: BP 120/74
[2019-01-20 04:05] VITALS: BP 140/74
[2019-01-20] MEDS: IBUPROFEN 400 MG TABLET PO PRN (04:11)
[2019-01-20] MEDS: AmLODIPine BESYLATE 10 MG TABLET PO SCH (08:44)
[2019-01-20] MEDS: TRIHEXYPHENIDYL HCL 5 MG TABLET PO SCH ×2 (08:44→20:39)
[2019-01-20] MEDS: MULTIVITAMINS WITH MINERALS, THERAPEUTIC TABLET PO SCH (08:45)
[2019-01-20 09:05] VITALS: BP 140/82
[2019-01-20] MEDS: LORazepam 1 MG TABLET PO PRN (12:15)
[2019-01-20] MEDS: QUEtiapine FUMARATE 100 MG TABLET PO PRN (12:15)
[2019-01-20 18:19] VITALS: BP 129/71
[2019-01-20] MEDS: QUEtiapine FUMARATE 200 MG TABLET PO SCH (20:39)
[2019-01-21 04:29] VITALS: BP 119/78
[2019-01-21] MEDS: MULTIVITAMINS WITH MINERALS, THERAPEUTIC TABLET PO SCH (08:22)
[2019-01-21] MEDS: AmLODIPine BESYLATE 10 MG TABLET PO SCH (08:22)
[2019-01-21 08:25] VITALS: BP 144/73
[2019-01-21] MEDS: QUEtiapine FUMARATE 100 MG TABLET PO PRN (15:27)
[2019-01-21] MEDS: LORazepam 1 MG TABLET PO PRN (15:27)
[2019-01-21] MEDS: IBUPROFEN 400 MG TABLET PO PRN (15:29)
[2019-01-21 15:30] VITALS: BP 154/103
[2019-01-21 16:30] VITALS: BP 133/85
[2019-01-21] MEDS: QUEtiapine FUMARATE 200 MG TABLET PO SCH (20:00)
[2019-01-21] MEDS: TRIHEXYPHENIDYL HCL 5 MG TABLET PO SCH (20:00)
[2019-01-22 01:38] VITALS: BP 123/74
[2019-01-22] MEDS: MULTIVITAMINS WITH MINERALS, THERAPEUTIC TABLET PO SCH (08:49)
[2019-01-22] MEDS: AmLODIPine BESYLATE 10 MG TABLET PO SCH (08:49)
[2019-01-22 09:34] VITALS: BP 118/65
[2019-01-22] MEDS: QUEtiapine FUMARATE 100 MG TABLET PO PRN ×2 (12:51→16:26)
[2019-01-22] MEDS: LORazepam 1 MG TABLET PO PRN ×2 (12:51→16:26)
[2019-01-22] MEDS: IBUPROFEN 400 MG TABLET PO PRN (16:26)
[2019-01-22 16:27] VITALS: BP 125/64
[2019-01-22] MEDS: QUEtiapine FUMARATE 300 MG TABLET PO SCH (22:07)
[2019-01-22] MEDS: TRIHEXYPHENIDYL HCL 5 MG TABLET PO SCH (22:07)
[2019-01-23 02:11] VITALS: BP 100/63
[2019-01-23 06:35] VITALS: BP 141/89
[2019-01-23] MEDS: IBUPROFEN 400 MG TABLET PO PRN (06:35)
[2019-01-23] MEDS: AmLODIPine BESYLATE 10 MG TABLET PO SCH (08:42)
[2019-01-23] MEDS: MULTIVITAMINS WITH MINERALS, THERAPEUTIC TABLET PO SCH (08:42)
[2019-01-23 09:07] VITALS: BP 147/78
[2019-01-23 16:00] VITALS: BP 138/72
[2019-01-23] MEDS: QUEtiapine FUMARATE 100 MG TABLET PO PRN (16:55)
[2019-01-23] MEDS: LORazepam 1 MG TABLET PO PRN (16:56)
[2019-01-23] MEDS: TRIHEXYPHENIDYL HCL 5 MG TABLET PO SCH (20:22)
[2019-01-23] MEDS: QUEtiapine FUMARATE 300 MG TABLET PO SCH (20:22)
[2019-01-24 00:10] VITALS: BP 125/58
[2019-01-24] MEDS: IBUPROFEN 400 MG TABLET PO PRN (00:14)
[2019-01-24 08:47] VITALS: BP 119/70
[2019-01-24] MEDS: MULTIVITAMINS WITH MINERALS, THERAPEUTIC TABLET PO SCH (09:42)
[2019-01-24] MEDS: LORazepam 1 MG TABLET PO PRN (09:42)
[2019-01-24] MEDS: QUEtiapine FUMARATE 100 MG TABLET PO PRN (09:42)
[2019-01-24] MEDS: AmLODIPine BESYLATE 10 MG TABLET PO SCH (09:42)
[2019-01-24 16:00] VITALS: BP 140/105
[2019-01-24] MEDS: PETROLATUM,WHITE 28 GM JELLY TP PRN (17:10)
[2019-01-24] MEDS: QUEtiapine FUMARATE 300 MG TABLET PO SCH (20:02)
[2019-01-24] MEDS: TRIHEXYPHENIDYL HCL 5 MG TABLET PO SCH (20:02)
[2019-01-25 01:30] VITALS: BP 145/81
[2019-01-25] MEDS: IBUPROFEN 400 MG TABLET PO PRN (01:37)
[2019-01-25] MEDS: MULTIVITAMINS WITH MINERALS, THERAPEUTIC TABLET PO SCH (08:30)
[2019-01-25] MEDS: AmLODIPine BESYLATE 10 MG TABLET PO SCH (08:30)
[2019-01-25 09:08] VITALS: BP 103/80
[2019-01-25 16:52] VITALS: BP 128/77
[2019-01-25] MEDS: QUEtiapine FUMARATE 300 MG TABLET PO SCH (20:34)
[2019-01-25] MEDS: TRIHEXYPHENIDYL HCL 5 MG TABLET PO SCH (20:34)
[2019-01-26 06:06] VITALS: BP 134/80
[2019-01-26 08:29] VITALS: BP 139/86
[2019-01-26] MEDS: MULTIVITAMINS WITH MINERALS, THERAPEUTIC TABLET PO SCH (09:04)
[2019-01-26] MEDS: AmLODIPine BESYLATE 10 MG TABLET PO SCH (09:04)
[2019-01-26 16:27] VITALS: BP 130/77
[2019-01-26] MEDS: TRIHEXYPHENIDYL HCL 5 MG TABLET PO SCH (20:21)
[2019-01-26] MEDS: QUEtiapine FUMARATE 300 MG TABLET PO SCH (20:22)
[2019-01-27] MEDS: PETROLATUM,WHITE 28 GM JELLY TP PRN (03:00)
[2019-01-27 03:11] VITALS: BP 127/71
[2019-01-27] MEDS: AmLODIPine BESYLATE 10 MG TABLET PO SCH (09:02)
[2019-01-27] MEDS: MULTIVITAMINS WITH MINERALS, THERAPEUTIC TABLET PO SCH (09:02)
[2019-01-27 10:06] VITALS: BP 109/70
[2019-01-27 17:00] VITALS: BP 137/79
[2019-01-27] MEDS: TRIHEXYPHENIDYL HCL 5 MG TABLET PO SCH (20:13)
[2019-01-27] MEDS: QUEtiapine FUMARATE 300 MG TABLET PO SCH (20:15)
[2019-01-27 20:48] VITALS: BP 137/79
[2019-01-28] MEDS: PETROLATUM,WHITE 28 GM JELLY TP PRN ×2 (01:43→17:13)
[2019-01-28 03:07] VITALS: BP 123/62
[2019-01-28] MEDS: AmLODIPine BESYLATE 10 MG TABLET PO SCH (08:30)
[2019-01-28] MEDS: MULTIVITAMINS WITH MINERALS, THERAPEUTIC TABLET PO SCH (08:30)
[2019-01-28 11:39] VITALS: BP 130/77
[2019-01-28 16:30] VITALS: BP 129/73
[2019-01-28] MEDS: QUEtiapine FUMARATE 300 MG TABLET PO SCH (21:35)
[2019-01-28] MEDS: TRIHEXYPHENIDYL HCL 5 MG TABLET PO SCH (21:35)
[2019-01-29 00:25] VITALS: BP 122/68
[2019-01-29 08:20] VITALS: BP 151/88
[2019-01-29] MEDS: MULTIVITAMINS WITH MINERALS, THERAPEUTIC TABLET PO SCH (08:47)
[2019-01-29] MEDS: AmLODIPine BESYLATE 10 MG TABLET PO SCH (08:47)
[2019-01-29 13:02] VITALS: BP 130/81
[2019-01-29] MEDS: IBUPROFEN 400 MG TABLET PO PRN (13:02)
[2019-01-29 16:45] VITALS: BP 120/84
[2019-01-29] MEDS: QUEtiapine FUMARATE 300 MG TABLET PO SCH (20:05)
[2019-01-29] MEDS: TRIHEXYPHENIDYL HCL 5 MG TABLET PO SCH (20:05)
[2019-01-30 08:00] VITALS: BP 142/75
[2019-01-30] MEDS: QUEtiapine FUMARATE 100 MG TABLET PO PRN (08:29)
[2019-01-30] MEDS: AmLODIPine BESYLATE 10 MG TABLET PO SCH (08:29)
[2019-01-30] MEDS: MULTIVITAMINS WITH MINERALS, THERAPEUTIC TABLET PO SCH (08:29)
[2019-01-30] MEDS ORDERED: QUEtiapine FUMARATE 200 MG TABLET PO SCH (09:00)
[2019-01-30] MEDS ORDERED: OLANZapine 5 MG TABLET PO PRN (14:15)
[2019-01-30] MEDS: LORazepam 1 MG TABLET PO PRN (16:50)
[2019-01-30 18:57] VITALS: BP 129/74
[2019-01-30] MEDS: TRIHEXYPHENIDYL HCL 5 MG TABLET PO SCH (20:46)
[2019-01-30] MEDS: QUEtiapine FUMARATE 200 MG TABLET PO SCH (20:47)
[2019-01-31 02:03] VITALS: BP 129/78
[2019-01-31] MEDS: MULTIVITAMINS WITH MINERALS, THERAPEUTIC TABLET PO SCH (09:24)
[2019-01-31] MEDS: AmLODIPine BESYLATE 10 MG TABLET PO SCH (09:24)
[2019-01-31 09:58] VITALS: BP 133/71
[2019-01-31] MEDS: IBUPROFEN 400 MG TABLET PO PRN (10:05)
[2019-01-31 17:00] VITALS: BP 138/86
[2019-01-31] MEDS: QUEtiapine FUMARATE 200 MG TABLET PO SCH (20:17)
[2019-01-31] MEDS: TRIHEXYPHENIDYL HCL 5 MG TABLET PO SCH (20:17)
[2019-02-01 02:25] VITALS: BP 122/72
[2019-02-01] MEDS: LORazepam 1 MG TABLET PO PRN ×2 (02:29→22:27)
[2019-02-01] MEDS: IBUPROFEN 400 MG TABLET PO PRN ×2 (02:29→22:29)
[2019-02-01] MEDS: MULTIVITAMINS WITH MINERALS, THERAPEUTIC TABLET PO SCH (08:55)
[2019-02-01] MEDS: AmLODIPine BESYLATE 10 MG TABLET PO SCH (08:55)
[2019-02-01 10:13] VITALS: BP 123/73
[2019-02-01] MEDS: TRIHEXYPHENIDYL HCL 5 MG TABLET PO SCH (20:30)
[2019-02-01] MEDS: QUEtiapine FUMARATE 200 MG TABLET PO SCH (20:30)
[2019-02-02 04:52] VITALS: BP 125/78
[2019-02-02 09:22] VITALS: BP 138/81
[2019-02-02] MEDS: AmLODIPine BESYLATE 10 MG TABLET PO SCH (09:25)
[2019-02-02] MEDS: MULTIVITAMINS WITH MINERALS, THERAPEUTIC TABLET PO SCH (09:25)
[2019-02-02] MEDS: IBUPROFEN 400 MG TABLET PO PRN (09:34)
[2019-02-02] MEDS: QUEtiapine FUMARATE 200 MG TABLET PO SCH (20:15)
[2019-02-02] MEDS: TRIHEXYPHENIDYL HCL 5 MG TABLET PO SCH (20:15)
[2019-02-02 21:24] VITALS: BP 128/70
[2019-02-03 03:29] VITALS: BP 112/67
[2019-02-03] MEDS: MULTIVITAMINS WITH MINERALS, THERAPEUTIC TABLET PO SCH (08:55)
[2019-02-03] MEDS: AmLODIPine BESYLATE 10 MG TABLET PO SCH (08:55)
[2019-02-03 08:56] VITALS: BP 121/77
[2019-02-03 16:47] VITALS: BP 122/78
[2019-02-03] MEDS: LORazepam 1 MG TABLET PO PRN (17:42)
[2019-02-03] MEDS: TRIHEXYPHENIDYL HCL 5 MG TABLET PO SCH (20:20)
[2019-02-03] MEDS: QUEtiapine FUMARATE 200 MG TABLET PO SCH (20:20)
[2019-02-04 02:40] VITALS: BP 136/82
[2019-02-04] MEDS: IBUPROFEN 400 MG TABLET PO PRN (02:41)
[2019-02-04 08:56] VITALS: BP 125/76
[2019-02-04] MEDS ORDERED: QUET200T PO (09:09)
[2019-02-04] MEDS: MULTIVITAMINS WITH MINERALS, THERAPEUTIC TABLET PO SCH (09:31)
[2019-02-04] MEDS: AmLODIPine BESYLATE 10 MG TABLET PO SCH (09:31)
[2019-02-04] MEDS: LORazepam 1 MG TABLET PO PRN (09:31)
== END 2019-02-04 16:15 | disposition home or self-care (01) | DRG 885 ==
LOC: EMS 19:58 → 3EX 01-07 02:33 → 3EI 01-09 20:36
DX: F25.0 Schizoaffective disorder, bipolar type (principal); E87.6 Hypokalemia; J44.9 Chronic obstructive pulmonary disease, unspecified; I10 Essential (primary) hypertension; E78.5 Hyperlipidemia, unspecified; M19.90 Unspecified osteoarthritis, unspecified site; F10.10 Alcohol abuse, uncomplicated; Y90.9 Presence of alcohol in blood, level not specified; F19.10 Other psychoactive substance abuse, uncomplicated; Z79.899 Other long term (current) drug therapy; F17.210 Nicotine dependence, cigarettes, uncomplicated; F41.9 Anxiety disorder, unspecified; G89.29 Other chronic pain; M54.5 Low back pain; Z88.8 Allergy status to other drugs, medicaments and biological substances
CPT/HCPCS: 84132; 87081; G0378; G0480; Q0162

== ENCOUNTER 2019-02-08 05:21 | Inpatient (IN) | payer BC, MEDICAID ==
[~2019-02-08] VITALS: Ht 160 cm; Wt 80.3 kg
[~2019-02-08 05:21] MED LIST changes: -HYD25 PO; -MULT-1239 PO; +QUET200T PO; -QUET300T18 PO; -QUET300T2 PO
[2019-02-08] MEDS ORDERED: LORazepam 2 MG TABLET PO PRN (05:45)
[2019-02-08] MEDS ORDERED: ZOLPIDEM TARTRATE 10 MG TABLET PO PRN (05:45)
[2019-02-08] MEDS ORDERED: QUEtiapine FUMARATE 100 MG TABLET PO PRN (05:45)
[2019-02-08 06:15] VITALS: BP 112/68
[2019-02-08] MEDS ORDERED: -PHARMACY VACCINE NOTE- MISC ONE (08:00)
[2019-02-08 08:11] VITALS: BP 119/70
[2019-02-08] MEDS ORDERED: CloNIDine HCL 0.1 MG TABLET PO PRN (08:15)
[2019-02-08] MEDS ORDERED: ACETAMINOPHEN 325 MG TABLET PO PRN (08:15)
[2019-02-08] MEDS ORDERED: MAGNESIUM HYDROXIDE SUSPENSION 30 ML UDCUP PO PRN (08:15)
[2019-02-08] MEDS ORDERED: MAG HYDROX/AL HYDROX/SIMETH ES 30 ML SUSPENSION UDCUP PO PRN (08:15)
[2019-02-08] MEDS ORDERED: ALBUTEROL SULFATE HFA 90 MCG/PUFF 8 GM INHALER IH PRN (08:15)
[2019-02-08] MEDS ORDERED: GuaiFENesin/D-METHORPHAN [SUGAR-FREE] 200-20MG/10 ML SYRUP UDCUP PO PRN (08:15)
[2019-02-08] MEDS ORDERED: LOPERAMIDE HCL 2 MG CAPSULE PO PRN (08:15)
[2019-02-08] MEDS ORDERED: DOCUSATE SODIUM 100 MG CAPSULE PO PRN (08:15)
[2019-02-08] MEDS ORDERED: NICOTINE 14 MG/24 HOUR PATCH TD PRN (08:15)
[2019-02-08] MEDS ORDERED: ONDANSETRON HCL 4 MG TABLET PO PRN (08:15)
[2019-02-08] MEDS: AmLODIPine BESYLATE 10 MG TABLET PO SCH (10:36)
[2019-02-08] MEDS ORDERED: PERMETHRIN 5% 60 GM CREAM TP ONE (10:45)
[2019-02-08] MEDS ORDERED: HALOPERIDOL LACTATE 5 MG/ML VIAL IM ONE (12:00)
[2019-02-08] MEDS ORDERED: LORazepam 2 MG/ML VIAL IM ONE (12:00)
[2019-02-08] MEDS ORDERED: OLANZapine 5 MG TABLET PO PRN (12:00)
[2019-02-08] MEDS ORDERED: DiphenhydrAMINE HCL 50 MG/ML VIAL IM ONE (12:00)
[2019-02-08 16:04] VITALS: BP 111/63
[2019-02-08] MEDS: TRIHEXYPHENIDYL HCL 5 MG TABLET PO SCH (20:30)
[2019-02-08] MEDS: QUEtiapine FUMARATE 200 MG TABLET PO SCH (20:30)
[2019-02-09 07:52] LABS: APPEARANCE,URINE TURBID (CLEAR); BILIRUBIN,URINE NEGATIVE (NEGATIVE); GLUCOSE, URINE (UA) NEGATIVE (NEGATIVE); KETONES,URINE NEGATIVE (NEGATIVE); LEUKOCYTE ESTERASE ,URINE NEGATIVE (NEGATIVE); NITRATE,URINE NEGATIVE (NEGATIVE); OCCULT BLOOD,URINE NEGATIVE (NEGATIVE); PROTEIN,URINE NEGATIVE (NEGATIVE)
[2019-02-09 07:57] LABS: AMPHET/METH SCREEN,URINE NEGATIVE (NEGATIVE); BARBITURATE SCREEN, URINE NEGATIVE (NEGATIVE); BENZODIAZEPINES SCREEN,URINE NEGATIVE (NEGATIVE); CANNABINOID SCREEN,URINE NEGATIVE (NEGATIVE); COCAINE SCREEN,URINE NEGATIVE (NEGATIVE); METHADONE SCREEN, URINE NEGATIVE (NEGATIVE); OPIATE SCREEN,URINE NEGATIVE (NEGATIVE)
[2019-02-09 08:00] LABS: PHENCYCLIDINE SCREEN,URINE NEGATIVE (NEGATIVE)
[2019-02-09 08:12] VITALS: BP 110/64
[2019-02-09 08:49] LABS: AMORPHOUS SEDIMENT,UR Many /LPF (None Seen); BACTERIA,URINE Few /HPF (None Seen); RBC,URINE None Seen /HPF (0-2); SQUAMOUS EPITHELIAL CELL,UR Few /LPF (None Seen); WBC,URINE 0-2 /HPF (0-5)
[2019-02-09] MEDS: AmLODIPine BESYLATE 10 MG TABLET PO SCH (08:49)
[2019-02-09 16:04] VITALS: BP 123/67
[2019-02-09] MEDS: QUEtiapine FUMARATE 200 MG TABLET PO SCH (20:39)
[2019-02-09] MEDS: TRIHEXYPHENIDYL HCL 5 MG TABLET PO SCH (20:39)
[2019-02-10] VITALS: BP 118/78
[2019-02-10] MEDS: PETROLATUM,WHITE 28 GM JELLY TP PRN (04:48)
[2019-02-10 08:39] VITALS: BP 119/73
[2019-02-10] MEDS: AmLODIPine BESYLATE 10 MG TABLET PO SCH (08:48)
[2019-02-10 16:05] VITALS: BP 119/74
[2019-02-10] MEDS: QUEtiapine FUMARATE 200 MG TABLET PO SCH (20:28)
[2019-02-10] MEDS: TRIHEXYPHENIDYL HCL 5 MG TABLET PO SCH (20:28)
[2019-02-11 00:01] VITALS: BP 115/70
[2019-02-11 08:06] VITALS: BP 117/62
[2019-02-11] MEDS: AmLODIPine BESYLATE 10 MG TABLET PO SCH (08:49)
[2019-02-11 16:15] VITALS: BP 117/73
[2019-02-11] MEDS: PETROLATUM,WHITE 28 GM JELLY TP PRN (20:29)
[2019-02-11] MEDS: TRIHEXYPHENIDYL HCL 5 MG TABLET PO SCH (20:29)
[2019-02-11] MEDS: QUEtiapine FUMARATE 200 MG TABLET PO SCH (20:29)
[2019-02-12 03:20] VITALS: BP 121/84
[2019-02-12 08:08] VITALS: BP 110/68
[2019-02-12] MEDS: AmLODIPine BESYLATE 10 MG TABLET PO SCH (08:18)
[2019-02-12 16:06] VITALS: BP 123/72
[2019-02-12] MEDS: QUEtiapine FUMARATE 200 MG TABLET PO SCH (20:18)
[2019-02-12] MEDS: TRIHEXYPHENIDYL HCL 5 MG TABLET PO SCH (20:18)
[2019-02-13 00:49] VITALS: BP 113/73
[2019-02-13 08:14] VITALS: BP 139/78
[2019-02-13] MEDS: AmLODIPine BESYLATE 10 MG TABLET PO SCH (08:32)
[2019-02-13 08:56] LABS: BASOPHILS % (AUTO) 0.7 % (0.0-2.0); EOSINOPHILS % (AUTO) 3.8 % (1.0-6.0); HEMATOCRIT 36.5 % (36-46); HEMOGLOBIN 12.3 g/dL (12.0-16.0); LYMPHOCYTES # (AUTO) 1.4 K/uL (1.0-4.8); LYMPHOCYTES % (AUTO) 28.1 % (22.0-44.0); MEAN CORPUSCULAR HGB CONC 33.6 G/dL (31.0-37.0); MEAN CORPUSCULAR VOLUME 95 fL (80-100); MONOCYTES # (AUTO) 0.5 K/uL (0.1-1.0); MONOCYTES % (AUTO) 10.6 % (2.0-9.0); NEUTROPHILS # (AUTO) 2.8 K/uL (1.8-7.7); NEUTROPHILS % (AUTO) 56.8 % (40.0-70.0); PLATELET COUNT (AUTO) 262 K/uL (150-450); RED BLOOD CELL COUNT(AUTO) 3.85 MIL/uL (4.00-5.20); RED CELL DISTRIBUTION WIDTH 13.7 % (11.5-14.5)
[2019-02-13 09:33] LABS: HEMOGLOBIN A1C 5.9 % (4.5-6.2)
[2019-02-13 09:58] LABS: CHOL/HDL RATIO 2.4 (3.9-5.7); FREE T4 (FREE THYROXINE) 0.77 ng/dL (0.76-1.46); THYROID STIMULATING HORMONE 1.25 uIU/mL (0.36-3.74)
[2019-02-13 16:02] VITALS: BP 110/74
[2019-02-13] MEDS: QUEtiapine FUMARATE 200 MG TABLET PO SCH (20:30)
[2019-02-13] MEDS: TRIHEXYPHENIDYL HCL 5 MG TABLET PO SCH (20:30)
[2019-02-14 02:21] VITALS: BP 121/76
[2019-02-14] MEDS: IBUPROFEN 400 MG TABLET PO PRN (04:45)
[2019-02-14 04:47] VITALS: BP 120/75
[2019-02-14 08:14] VITALS: BP 123/71
[2019-02-14] MEDS: AmLODIPine BESYLATE 10 MG TABLET PO SCH (08:30)
[2019-02-14 16:02] VITALS: BP 114/73
[2019-02-14] MEDS: TRIHEXYPHENIDYL HCL 5 MG TABLET PO SCH (21:24)
[2019-02-14] MEDS: QUEtiapine FUMARATE 200 MG TABLET PO SCH (21:24)
[2019-02-15 05:30] VITALS: BP 121/72
[2019-02-15] MEDS: IBUPROFEN 400 MG TABLET PO PRN (06:37)
[2019-02-15 08:20] VITALS: BP 147/73
[2019-02-15] MEDS: AmLODIPine BESYLATE 10 MG TABLET PO SCH (08:27)
[2019-02-15 10:13] VITALS: BP 122/71
[2019-02-15 16:23] VITALS: BP 124/90
[2019-02-15] MEDS: QUEtiapine FUMARATE 200 MG TABLET PO SCH (20:25)
[2019-02-15] MEDS: TRIHEXYPHENIDYL HCL 5 MG TABLET PO SCH (20:25)
[2019-02-16 00:45] VITALS: BP 112/63
[2019-02-16] MEDS: IBUPROFEN 400 MG TABLET PO PRN (00:45)
[2019-02-16 08:03] VITALS: BP 147/79
[2019-02-16] MEDS: AmLODIPine BESYLATE 10 MG TABLET PO SCH (08:29)
[2019-02-16 16:11] VITALS: BP 123/74
[2019-02-16] MEDS: TRIHEXYPHENIDYL HCL 5 MG TABLET PO SCH (20:03)
[2019-02-16] MEDS: QUEtiapine FUMARATE 200 MG TABLET PO SCH (20:03)
[2019-02-17 00:12] VITALS: BP 108/68
[2019-02-17] MEDS: IBUPROFEN 400 MG TABLET PO PRN (02:38)
[2019-02-17] MEDS: AmLODIPine BESYLATE 10 MG TABLET PO SCH (08:16)
[2019-02-17 08:21] VITALS: BP 144/85
[2019-02-17 16:23] VITALS: BP 119/60
[2019-02-17] MEDS: QUEtiapine FUMARATE 200 MG TABLET PO SCH (20:33)
[2019-02-17] MEDS: TRIHEXYPHENIDYL HCL 5 MG TABLET PO SCH (20:33)
[2019-02-18 01:27] VITALS: BP 119/74
[2019-02-18] MEDS: IBUPROFEN 400 MG TABLET PO PRN ×3 (01:33→20:57)
[2019-02-18 08:12] VITALS: BP 124/68
[2019-02-18] MEDS: AmLODIPine BESYLATE 10 MG TABLET PO SCH (08:42)
[2019-02-18 16:13] VITALS: BP 124/65
[2019-02-18] MEDS: QUEtiapine FUMARATE 200 MG TABLET PO SCH (20:42)
[2019-02-18] MEDS: TRIHEXYPHENIDYL HCL 5 MG TABLET PO SCH (20:42)
[2019-02-18 20:53] VITALS: BP 125/75
[2019-02-19 02:19] VITALS: BP 122/74
[2019-02-19 08:10] VITALS: BP 126/76
[2019-02-19] MEDS: AmLODIPine BESYLATE 10 MG TABLET PO SCH (08:47)
[2019-02-19] MEDS ORDERED: TRIH5TAB2 PO (11:56)
[2019-02-19] MEDS ORDERED: QUET200T29 PO (11:56)
[2019-02-19 16:18] VITALS: BP 109/68
== END 2019-02-19 17:30 | disposition home or self-care (01) | DRG 885 ==
LOC: B2S 06:10 → B2X 14:15
DX: F25.0 Schizoaffective disorder, bipolar type (principal); E78.5 Hyperlipidemia, unspecified; F10.10 Alcohol abuse, uncomplicated; Y90.9 Presence of alcohol in blood, level not specified; I10 Essential (primary) hypertension; J44.9 Chronic obstructive pulmonary disease, unspecified; K21.9 Gastro-esophageal reflux disease without esophagitis; K59.00 Constipation, unspecified; M19.90 Unspecified osteoarthritis, unspecified site; Z79.899 Other long term (current) drug therapy; Z91.5 Personal history of self-harm; Z88.8 Allergy status to other drugs, medicaments and biological substances; Z91.018 Allergy to other foods
CPT/HCPCS: 80307; 83036; 84439; 84443; 87081; J1200; J1630; J2060